=== PATIENT | female | born 2000 | race Two or more races ===

== ENCOUNTER 2025-01-29 00:32 | Emergency (ER) | payer MEDICAID, SELFPAY ==
[2025-01-29 00:32] VITALS: BMI 23.9
[2025-01-29 01:27] VITALS: BP 117/69; PULSE 89; RESP 18; TEMP 37; O2SAT 98
--- NOTE | 2025-01-29 01:40 | XR_ITS ---
Examination: Retroperitoneal ultrasound, complete Technique: Multiple high resolution grayscale images of the retroperitoneum obtained, including kidneys and bladder. Exam date and time:January 29, 2025, 0246 hrs. Indications: Back pain beginning 2 days ago. Findings: Right kidney 10.6 cm in the cortex 1.4 cm Left kidney 9.6 cm cortex 1.1 cm No hydronephrosis or renal calculi Contracted urinary bladder Impression: No hydronephrosis or renal calculi
--- NOTE | 2025-01-29 01:40 | XR_ITS ---
Examination: Transvaginal ultrasound of the pelvis, complete Technique: Transvaginal sonographic images pelvis performed using montalvo scale imaging Exam date and time: January 29, 2025, 0259 hrs. Indications: Pelvic and back pain beginning 2 weeks ago. Findings: Uterus 7.8 x 6.3 cm endometrial stripe 0.6 cm Increased vascularity to the uterus in cervix No discrete uterine mass. Right ovary 1.9 cm arterial flow dilated vessels to the right ovary Left ovary 1.8 cm arterial flow dilated vessels to the uterus Impression: Increased vascularity to the uterus and adnexal regions. Recommend transabdominal pelvic sonography follow-up.
--- NOTE | 2025-01-29 01:46 | PD.EDBACK ---
ED Back Injury Pain RME/HPI General Chief Complaint: Back Pain/Injury Stated Complaint: LOWER BACK /ABD PAIN X 5DAYS Time Seen by Provider: 01/29/25 01:40 Arrival date/time: 01/29/25 00:32 24F with history of seizures presents to ED with 5 days of low back pain w/o fall/trauma. Pain is worse with ROM. Then 4 days ago, patient started her period and started getting lower ab/pelvic pain. Patient denies dysuria. Limitations: no limitations Related Data Home Medications ?Medication ?Instructions ?Recorded ?Confirmed levetiracetam 750 mg tablet 1 tab PO BID 12/11/21 09/28/23 aspirin 81 mg chewable tablet 81 mg PO QDAY 09/28/23 09/28/23 Previous Rx's ?Medication ?Instructions ?Recorded ibuprofen 600 mg tablet 600 mg PO Q6H #30 tabs 04/03/22 Allergies Allergy/AdvReac Type Severity Reaction Status Date / Time petrolatum,white (From Allergy Unknown Swelling Verified 08/16/22 14:57 Petroleum Jelly) of Lip/Tongue/Throat Review of Systems Review of Systems Systems Reviewed: All systems reviewed, normal except as documented Genitourinary Genitourinary: Reports pelvic pain Musculoskeletal Musculoskeletal: Reports as per HPI and Reports back pain Past Medical History Past Medical History NEUROLOGIC: Positive Seizures; Negative Neurological Disorders CARDIAC: Positive Hypertension; Negative Cardiac Disorders or Congestive Heart Failure RESPIRATORY: Negative Chronic Obstructive Pulmonary Disease (COPD) or Asthma GASTROINTESTINAL: Negative Gastrointestinal Disorders GENITOURINARY: Negative Genitourinary Disorders or Renal Disease REPRODUCTIVE: Positive Previous Pregnancies MUSCULOSKELETAL: Negative Musculoskeletal Disorders ENDOCRINE: Negative Endocrine Disorders, Diabetes Mellitus Type 1 or Diabetes Mellitus Type 2 HEMATOLOGIC: Positive Blood Disorders and Anemia; Negative Sickle Cell Disease OTHER HISTORY: Negative Hospitalization, Autoimmune Disease, Down Syndrome, Developmental Delay, Falls, Blood Transfusions, Blood Transfusion Reaction or Anesthesia Reactions Family History FAMILY HISTORY: Negative Family Psychiatric Problems, Family Respiratory Disorders, Family Cardiac Disorders, Family Gastrointestinal Problems, Family Cancer, Family Surgery or Family Anesthesia Reaction Social History SMOKING STATUS: Never smoker ED Exam General Limitations: Present no limitations General appearance: Present alert and in no apparent distress Head Head exam: Present atraumatic Neck Neck exam: Present normal inspection, full ROM and trachea midline Chest Chest inspection: Present normal inspection and symmetric chest wall rise Respiratory Respiratory exam: Present normal lung sounds bilaterally Abdominal Exam Abdominal exam: Present soft and normal bowel sounds Abdominal tenderness: Present LLQ (pelvic) Back Exam Back exam: Present tenderness Psychiatric Psychiatric exam: Present normal affect and normal mood Skin Skin exam: Present warm, dry, intact and normal color Course Quality Measures none Orders Category Date Time Status US retroperitoneal comp Stat Exams 01/29/25 01:40 Taken US transvaginal Stat Exams 01/29/25 01:40 Taken CBC Stat Lab 01/29/25 01:46 Completed CMP [Comprehensive Metabolic Panel] Stat Lab 01/29/25 01:46 Completed HCG Qualitative,Urine Stat Lab 01/29/25 02:14 Completed Urinalysis, C/S if Indicated Stat Lab 01/29/25 02:14 Completed HYDROcodone*/APAP 5/325 [[place] 5/325] Med 01/29/25 01:41 Discontinued 1 tab PO X1 ONE Vital Signs Vital signs: Vital Signs Temperature 98.6 F 01/29/25 01:27 Pulse Rate 89 01/29/25 01:27 Respiratory Rate 18 01/29/25 01:27 Blood Pressure 117/69 01/29/25 01:27 Pulse Oximetry (%) 98 01/29/25 01:27 Oxygen Delivery Method Room Air 01/29/25 01:27 O2 at 98% on RA and WNLs Back Pain / Injury MDM Narrative MDM Narrative:: 24F with history of seizures presents to ED with 5 days of low back pain w/o fall/trauma. Pain is worse with ROM. Then 4 days ago, patient started her period and started getting lower ab/pelvic pain. Patient denies dysuria. Physical exam reveals mild low back tenderness. Some LLQ/pelvic tenderness. Patient is afebrile, calm, and alert. Telerad US renal no stones or hydro. Telerad US pelvic suggests pelvic congestion syndrome. No leukocytosis or gross anemia. CMP unremarkable. UA only blood, which makes sense given patient on cycle. HCG neg. Meds and consumer credit counselor given. Patient data External records reviewed:: [facility] previous records Clinical information provided by:: patient Social determinants that could affect healthcare access:: none Patient has the following chronic illnesses:: seizures How is presenting disease/condition affected by chronic disease/condition?: uneffected by Evaluation data The following diagnostics were reviewed and interpreted by me:: lab results and radiology exam(s) Lab and/or radiology exams considered but not ordered:: ordered Interpretation Summary: above Medications / Prescriptions Medications or Prescriptions considered but not ordered:: ordered Medication administrations:: Medication Administration History Discontinued Medications Hydrocodone Bitart/Acetaminophen (Hydrocodone/[place] 5/325 Tablet) 1 tab PO X1 ONE Stop: 01/29/25 01:42 Last Admin: 01/29/25 01:49 Dose: 1 tab Documented By: KRISHAN above Consultations Consultation(s) initiated? (list below): No Diagnosis Differential diagnosis back pain/injury: lumbar radiculopathy, sciatica, strain of lumbar region, renal colic, pyelonephritis, thoracic back pain, AAA, discitis and other (, UTI, pelvic pain, diverticulitis, pelvic congestion syndrome) Most likely diagnosis given after review of the tests above:: pelvic congestion syndrome Admission Indicated Admission indicated?: not indicated Admission Request Was there a request for admission?: No Disposition Plan Disposition Plan: Discharge Discharge Attestation Discharge Attestation: The patient and all family members were given an opportunity to ask questions and understood the discharge instructions. Discharge instructions specifically effects, indications for sooner follow up or return to the emergency department, and the expected course of current diagnosis. Patient condition: Stable Discharge Plan Plan Patient Disposition: HOME (Self Care) Discharge Disposition comment: Stable Prescriptions/Referrals Prescriptions/Med Rec: No Action levetiracetam 750 mg tablet 1 tab PO BID Patient Comments: TAKE 1 TABLET BY MOUTH TWICE DAILY ibuprofen 600 mg tablet 600 mg PO Q6H Qty: 30 0RF aspirin 81 mg Tablet,Chewable 81 mg PO QDAY Referrals: Temporary Provider,ED [Physician, Emergency Medicine] - In 1 week Problem List Clinical Impression: Female pelvic congestion syndrome Patient/Caregiver Discharge Instructions Education Materials: Pelvic Congestion Syndrome Additional Instructions: Please follow-up with PCP /OBYGNwithin 24-48 hours and return immediately if symptoms worsen. Print Language: Austrian Stand Alone Forms: Patient Portal Info Letter ALYCE/FRANCISCO Supervising Physician ALYCE/FRANCISCO Supervising Physician: Dr. Andersen
[2025-01-29] MEDS: HYDROcodone/APAP 5/325 TABLET 1 TAB PO (01:49)
[2025-01-29 01:58] LABS: Basophils # (Auto) 0.1 Thou/mm3 (0.0-0.2); Basophils % (Auto) 1 % (0-2.5); Eosinophils # (Auto) 0.2 Thou/mm3 (0.0-0.5); Eosinophils % (Auto) 2 % (0-10); Hematocrit 34.6 % (36.0-46.0); Hemoglobin 11.2 g/dL (12.0-16.0); Immature Granulocytes Auto 0.03 Thou/mm3 (0.00-0.00); Lymphocytes # (Auto) 1.6 Thou/mm3 (1.0-4.8); Lymphocytes % (Auto) 18 % (10-50); Mean Corpuscular HGB Conc 32.4 g/dl (31.0-37.0); Mean Corpuscular Hemoglobin 27.5 pg (25.0-35.0); Mean Corpuscular Volume 85 fL (80-100); Monocytes # (Auto) 0.6 Thou/mm3 (0.0-0.8); Monocytes % (Auto) 7 % (0-12); Neutrophils # (Auto) 6.5 Thou/mm3 (1.8-7.7); Neutrophils % (Auto) 72 % (37-80); Nucleated Red Blood Cell # 0.00 Thou/mm3 (0.00-0.00); Nucleated Red Blood Cell % 0 /100 WBC (0); Platelet Count 228 Thou/mm3 (140-440); RDW Standard Deviation 40.1 fL (36.4-46.3); Red Blood Count 4.07 Miln/mm3 (4.00-5.20); White Blood Count 9.0 Thou/mm3 (3.6-11.0)
[2025-01-29 02:22] LABS: Alanine Aminotransferase 10 U/L (10-49); Albumin, Serum 4.3 gm/dL (3.5-5.0); Albumin/Globulin Ratio 2.0 (1.2-2.2); Alkaline Phosphatase 75 U/L (46-116); Anion Gap 10 (7-16); Aspartate Amino Transferase 18 U/L (0-34); BUN/Creatinine Ratio 13 Ratio (12-20); Bilirubin,Total 0.4 mg/dL (0.3-1.2); Blood Urea Nitrogen 9 mg/dL (9-23); Calcium 9.0 mg/dL (8.3-10.6); Calcium (Corrected) 9.0 mg/dL (8.5-10.1); Carbon Dioxide 24.3 mMol/L (20.0-31.0); Chloride 109 mMol/L (98-107); Creatinine (Component) 0.7 mg/dL (0.6-1.3); Estimated Creatinine Clearance 98.0 mL/min (>60); Globulin 2.1 gm/dL (2.3-3.5); Glucose 96 mg/dL (74-106); Osmolality,Calculated 283 (275-295); Potassium 3.9 mMol/L (3.4-5.1); Sodium 143 mMol/L (136-145); Total Protein 6.4 gm/dL (5.7-8.2); eGFR > 60 See Note
[2025-01-29 02:47] LABS: Collection Type, Urine Clean Catch
[2025-01-29 03:06] LABS: Bacteria,Urine Rare; Bilirubin,Urine Negative (Negative); Blood,Urine 3+ (Negative); Clarity,Urine Turbid (Clear/Hazy); Culture Indicated,Urine Not Indicated; Glucose, Urine Negative (Negative); Ketones,Urine Negative (Negative); Leukocyte Esterase,Urine Negative (Negative); Nitrite,Urine Negative (Negative); PH,Urine 6.5 (5.0-7.0); Protein,Urine 1+ (Neg - Trace); RBC,Urine 114 /hpf (0-3); Specific Gravity,Urine 1.028 (1.001-1.035); Squamous Epithelial Cell,Urine 3 /hpf (0-5); Urobilinogen,Urine Negative mg/dL (0.0-1.0); WBC,Urine 3 /hpf (0-5)
[2025-01-29 03:08] LABS: Color,Urine Lt-Orange (Lt Yel-Yel); HCG Qualitative,Urine Negative
--- NOTE | 2025-01-29 04:30 | PRELIM_ITS ---
Transvaginal pelvic ultrasound Clinical history: Pelvic pain. LMP 01/26/2025. Findings: Uterus is 7.8 x 3.6 x 6.3 cm. Uterus and cervix are hypervascular. Endometrium is 6 mm thick. Right ovary is 1.9 x 1.1 x 1.3 cm. Prominent right parametrial veins. Left ovary is 1.8 x 1.1 x 1.3 cm. The ovaries have normal Doppler flow bilaterally. No free fluid. Impression: Prominent right parametrial vasculature and uterine/cervix hypervascularity, may be related to parity. Recommend clinical correlation to exclude pelvic venous congestion syndrome. Report Electronically Signed By: Ruben Katz 01/29/2025 4:29:41 AM [EST]
--- NOTE | 2025-01-29 04:32 | PRELIM_ITS ---
Renal/Retroperitoneal ultrasound. January 29, 2025 at 0246 hours Clinical history: Rule out stone. Technique: Duplex scan of the bilateral renal arterial and venous tree was performed utilizing 2D grayscale imaging, Doppler spectral analysis and color flow. Reference is made to the prior CT abdomen and pelvis report dated December 11, 2021. Findings: The right kidney is 10.6 x 4.0 x 5.1 cm with cortical thickness of 1.4 cm. The left kidney is 9.6 x 4.2 x 5.2 cm with cortical thickness of 1.1 cm. No hydronephrosis mass or calculus bilaterally. The prevoid urinary bladder is 10 cc. Impression: Normal exam. Report Electronically Signed By: Ruben Katz 01/29/2025 4:31:38 AM [EST]
[2025-01-29 05:01] VITALS: BP 116/75; PULSE 76; RESP 16; TEMP 36.8; O2SAT 98
== END 2025-01-29 05:02 | disposition home or self-care (01) ==
PROVIDERS: Physician Assistant; Emergency Provider Emergency Medicine; PCP Nurse Practitioner
DX: N94.89 Other specified conditions associated with female genital organs and menstrual cycle (principal)
CPT/HCPCS: 36415; 76770; 76830; 80053; 81001; 81025; 85025; 99283; A9270